=== PATIENT | female | born 1930 | race Caucasian/White ===

== ENCOUNTER 2019-03-04 11:36 | Emergency (ER) | payer MEDICARE ==
[~2019-03-04] VITALS: Ht 163.8 cm; Wt 65.9 kg
[2019-03-04 11:42] VITALS: BP 126/88; Ht 163.8 cm; Wt 65.9 kg
[2019-03-06] MEDS ORDERED: ULTRAM50 MG PO (15:47)
== END 2019-03-04 13:13 | disposition home or self-care (01) ==
LOC: D.ER 11:36
DX: S52.501A Unspecified fracture of the lower end of right radius, initial encounter for closed fracture (principal); S52.611A Displaced fracture of right ulna styloid process, initial encounter for closed fracture; W18.30XA Fall on same level, unspecified, initial encounter; Y93.89 Activity, other specified; Y92.019 Unspecified place in single-family (private) house as the place of occurrence of the external cause

== ENCOUNTER 2019-03-07 11:20 | Day surgery (SDC) | payer MEDICARE, OTHER ==
[~2019-03-07 11:20] MED LIST: ULTRAM50 MG PO
[2019-03-07 11:54] LABS: CALCIUM 8.6 mg/dL (8.5-10.1); CARBON DIOXIDE 26.9 mmol/L (21.0-32.0); CREATININE - SERUM 0.8 mg/dL (0.6-1.3); POTASSIUM - SERUM 3.9 mmol/L (3.5-5.1)
[2019-03-07 11:58] LABS: BASOPHILS 0.5 % (0-2); HEMATOCRIT 36.9 % (36.0-48.0); HEMOGLOBIN 12.2 g/dL (12-16); IMMATURE GRANULOCYTES 0.4 % (0-5); LYMPHOCYTES 12.6 % (15-50); MCH 27.6 pg (26.0-34.0); MCHC 33.1 g/dL (31.0-37.0); MCV 83.5 fL (80.0-100.0); MEAN PLATELET VOLUME 9.3 fL (7.4-10.4); MONOCYTES 7.9 % (2-11); NEUTROPHILS 77.6 % (40-80); PLATELET COUNT 204 10x3/uL (130-400); RBC 4.42 10x6/uL (4.00-5.40); RDW 15.1 % (11.5-14.5); WBC 7.9 10x3/uL (4.8-10.8)
[2019-03-07 13:42] VITALS: BP 168/51; BMI 24.9
[2019-03-07 13:50] VITALS: BP 168/51; BMI 24.9
[2019-03-07] MEDS ORDERED: HYDROCODON-ACE1 EAC7 PO (17:43)
[2019-03-07] MEDS ORDERED: DURICEF500 MG PO (17:43)
--- NOTE | 2019-03-08 06:55 | OP ---
PATIENT NAME: KRYSTAL SOTO MEDICAL RECORD: [id number] :[birth year] LOCATION:[facility] ADMISSION DATE: SURGEON: CHINO DARNELL DO DATE OF OPERATION: 03/07/2019 PROCEDURE PERFORMED: Right distal radius open reduction internal fixation and removal of a seborrheic keratosis on her right thumb. PREOPERATIVE DIAGNOSES: Right thumb seborrheic keratosis and a distal radius fracture, both on the right. POSTOPERATIVE DIAGNOSES: Right thumb seborrheic keratosis and a distal radius fracture, both on the right. INDICATIONS: Ms. Soto is an 88-year-old female who fell earlier this week onto her right distal radius. She was seen in the ER. It was displaced and placed in a splint and followed up in my clinic. She was put on the schedule for today. She denied any numbness or tingling in the hand into the extremity; however, it was swollen and she does have some pain. She was informed of the risks including infection, bleeding, damage to nerves and vessels, need for further surgery, failure of fixation and she was okay with those risks and signed the consent. She also mentions she had the seborrheic keratosis on the film and wanted it removed. I told her I could do that, but it may come back. She was okay with that, but she wanted it off. SURGEON: Chino Darnell DO DESCRIPTION OF PROCEDURE: The patient was given a block by anesthesia in the preoperative area and taken to the operative suite, laid in supine position, given 2 grams of Ancef preoperatively. The right upper extremity was prepped and draped in sterile fashion. A time out was performed, everyone was agreeance with correct side, site, patient and procedure. The Esmarch was then used to exsanguinate the right upper extremity and tourniquet was inflated to 250 mmHg and up for 34 minutes. A seborrheic keratosis was then marked out and excised in an elliptical fashion and removed. The incision for the distal radius was then marked out on the volar wrist over the flexor carpi radialis tendon. The incision was made over it and then careful dissection made down to the tendon and then the tendon was taken radially and the dorsal side of the sheath was removed and then careful dissection was made down to the distal radius. The pronator quadratus was then removed off the distal radius and the fracture was exposed, reduced, pinned in place with a K-wire. Once there was a satisfactory position, the plate was placed. The [employer] plate was placed and K-wires were used to fix it. It was fixed distally first with 6 locking screws and 5 locking screws and then one into the radial styloid. This was confirmed in good position on AP and lateral, and then 3 screws were placed in the shaft, 2 locking. The K-wires were then removed and x-rays were taken. The plate was in good position. The fracture was well reduced. Tourniquet was let down at 34 minutes. The site was then irrigated. She did happen to have a skin tear on the dorsal wrist. This was dressed with Telfa and Tegaderm. The incision was then closed with a 3-0 Vicryl in inverted interrupted fashion and 5-0 Monocryl ran on the skin and then seborrheic keratosis spot on her dorsal radial thumb over the metacarpal was closed with 5-0 Monocryl in inverted interrupted fashion. Prineo was then placed on both those incisions and Adaptic, 4 x 4s was placed over all that and cast padding was placed over that. She was then placed in a volar splint, awakened and taken to recovery in stable condition. OPERATIVE REPORT [id number] KRYSTAL SOTO BLOOD LOSS: Minimal. COMPLICATIONS: None. TRANSINT:[id number] Voice Confirmation ID: [id number] DOCUMENT ID: [id number] CHINO DARNELL DO at 0655 CC: [id number] DICTATION DATE: 03/07/19 1749 BAG TESTER: 03/08/19 0046 [facility] 03/07/19 [place] [id number] [place] [id number]
== END 2019-03-07 19:20 | disposition home or self-care (01) ==
LOC: D.OPS 11:20 → D.PAN 12:15 → D.OPS 12:45 → D.PAN 12:45 → D.OPS 19:20
PROVIDERS: ATTEND Orthopaedic Surgery
DX: L82.1 Other seborrheic keratosis (principal); S52.501A Unspecified fracture of the lower end of right radius, initial encounter for closed fracture; W19.XXXA Unspecified fall, initial encounter; Z01.812 Encounter for preprocedural laboratory examination